=== PATIENT | female | born 1985 | race Caucasian/White ===

== ENCOUNTER 2019-04-23 17:35 | Emergency (ER) | payer OTHER ==
[2019-04-23] MEDS ORDERED: cefTRIAXone SODIUM 1 GM INJ ONE (17:57)
[2019-04-23] MEDS ORDERED: Lidocaine 1% 5ml 10 MG/ML VIAL ONE (17:57)
[2019-04-23] MEDS ORDERED: methylPREDNISolone SOD SUCC 125 MG/2 ML VIAL ONE (17:57)
== END 2019-04-23 18:07 ==
LOC: ED 17:35
DX: J06.9 Acute upper respiratory infection, unspecified (principal)
CPT/HCPCS: 96372; 99283; J0696; J2930